=== PATIENT | female | born 1965 | race Caucasian/White ===

== ENCOUNTER 2022-07-23 12:23 | Inpatient (IN) | payer MEDICARE, MEDICAID ==
[~2022-07-23] VITALS: Ht 165.1 cm; Wt 104.3 kg
[2022-07-23 14:43] LABS: BASOPHILS % 0.3 % (0.0-2.0); EOSINOPHILS % 2.6 % (0.0-5.0); HEMATOCRIT. 41.5 % (36.0-48.0); HEMOGLOBIN. 13.3 g/dL (12.0-16.0); LYMPHOCYTES % 23.6 % (20.0-50.0); MEAN CORPUSCULAR HEMOGLOBIN 25.7 pg (28.0-32.0); MEAN CORPUSCULAR VOLUME 79.8 fL (81.0-99.0); MONOCYTES % 5.7 % (2.0-8.0); NEUTROPHILS % 67.8 % (40.0-76.0); PLATELET 206 x1000/uL (130-400); RED CELL DISTRIBUTION WIDTH 15.3 % (11.6-14.6)
[2022-07-23 14:57] LABS: CHLORIDE 97 mEq/L (98-107)
[2022-07-23] MEDS ORDERED: ASPIRIN 81MG TABLET PO NR (15:30)
[2022-07-23 16:57] LABS: PROTHROMBIN TIME 10.4 sec (9.6-11.0)
[2022-07-23 17:48] VITALS: BP 169/95
[2022-07-23] MEDS ORDERED: MAGNESIUM/ALUMINUM HYDROXIDE/SIMETHICONE 30ML UDC PO PRN (18:30)
[2022-07-23] MEDS ORDERED: GUAIFENESIN 200MG/10ML SUGAR FREE UDC PO PRN (18:30)
[2022-07-23] MEDS ORDERED: IPRATROPIUM/ALBUTEROL 0.5-3(2.5)MG/3ML NEB HHN PRN (18:30)
[2022-07-23] MEDS ORDERED: ONDANSETRON HCL 4MG/2ML INJ IV PRN (18:30)
[2022-07-23] MEDS ORDERED: DEXTROSE 50% WATER 50ML SYRINGE IV PRN (18:45)
[2022-07-23] MEDS: BLOOD SUGAR DIAGNOSTIC STRIP TEST SCH (20:31)
[2022-07-23] MEDS: FAMOTIDINE 20MG TABLET PO SCH (20:55)
[2022-07-23] MEDS: FUROSEMIDE 40MG TABLET PO SCH (21:00)
[2022-07-23] MEDS: INSULIN LISPRO 100 UNITS/ML SUBCUT SCH (21:00)
[2022-07-23] MEDS ORDERED: CLONIDINE 0.1MG TABLET PO PRN (22:00)
[2022-07-23] MEDS: AMLODIPINE 10MG TABLET PO SCH (22:08)
[2022-07-23 22:54] LABS: CLARITY URINE CLEAR (CLEAR); COLOR URINE YELLOW (YELLOW); KETONES URINE NEGATIVE (NEGATIVE); LEUKOCYTE ESTERASE URINE NEGATIVE (NEGATIVE); NITRITE URINE NEGATIVE (NEGATIVE); OCCULT BLOOD URINE NEGATIVE (NEGATIVE); PH URINE 5.5 (4.5-8.0); PROTEIN URINE TRACE (NEGATIVE); SPECIFIC GRAVITY URINE 1.026 (1.005-1.030); UROBILINOGEN URINE 0.2 E.U./dL (0.2-1.0)
[2022-07-23 23:14] LABS: *AMPHETAMINES SCREEN URINE NEGATIVE (NEGATIVE); *BARBITURATES SCREEN URINE NEGATIVE (NEGATIVE); *BENZODIAZEPINES SCREEN URINE NEGATIVE (NEGATIVE); *COCAINE SCREEN URINE NEGATIVE (NEGATIVE); CANNABINOID URINE SCREEN NEGATIVE (NEGATIVE); METHADONE URINE SCREEN NEGATIVE (NEGATIVE); OPIATES URINE SCREEN NEGATIVE (NEGATIVE); PHENCYCLIDINE URINE SCREEN NEGATIVE (NEGATIVE)
[2022-07-24] VITALS: BP 126/58
[2022-07-24] MEDS: METOPROLOL SUCCINATE 50MG ER TABLET PO SCH ×2 (01:18→09:40)
[2022-07-24 04:00] VITALS: BP 118/78
[2022-07-24] MEDS: PANTOPRAZOLE 40MG DR TABLET PO SCH ×2 (04:40→06:47)
[2022-07-24] MEDS: LEVOTHYROXINE SODIUM 50MCG TABLET PO SCH ×2 (04:40→06:47)
[2022-07-24] MEDS: ACETAMINOPHEN 325MG TABLET PO PRN ×3 (04:43→17:08)
[2022-07-24] MEDS: BLOOD SUGAR DIAGNOSTIC STRIP TEST SCH ×4 (06:23→21:15)
[2022-07-24 06:50] LABS: CHLORIDE 96 mEq/L (98-107)
[2022-07-24] MEDS: INSULIN LISPRO 100 UNITS/ML SUBCUT SCH ×4 (06:52→21:00)
[2022-07-24 06:58] LABS: BASOPHILS % 0.1 % (0.0-2.0); EOSINOPHILS % 2.7 % (0.0-5.0); HEMATOCRIT. 38.1 % (36.0-48.0); HEMOGLOBIN. 12.3 g/dL (12.0-16.0); LYMPHOCYTES % 26.4 % (20.0-50.0); MEAN CORPUSCULAR HEMOGLOBIN 25.8 pg (28.0-32.0); MEAN PLATELET VOLUME 11.1 fl (7.4-10.4); MONOCYTES % 7.1 % (2.0-8.0); NEUTROPHILS % 63.7 % (40.0-76.0); PLATELET 190 x1000/uL (130-400); RED BLOOD CELL COUNT 4.76 mill/uL (4.2-5.4); RED CELL DISTRIBUTION WIDTH 15.2 % (11.6-14.6)
[2022-07-24 07:09] LABS: HDL CHOLESTEROL 44 mg/dL (40-59); LDL CHOLESTEROL 136 mg/dL (5-100); T4 FREE 0.65 ng/dL (0.76-1.46); TOTAL IRON BINDING CAPACITY 441 ug/dL (250-450)
[2022-07-24 08:00] VITALS: BP 142/74
[2022-07-24] MEDS: AMLODIPINE 10MG TABLET PO SCH (09:39)
[2022-07-24] MEDS: ENOXAPARIN 30MG/0.3ML SYR SUBCUT SCH ×2 (09:39→21:14)
[2022-07-24] MEDS: ASPIRIN 81MG TABLET PO SCH (09:39)
[2022-07-24] MEDS: FUROSEMIDE 40MG TABLET PO SCH (09:40)
[2022-07-24 12:00] VITALS: BP 161/81
[2022-07-24 16:00] VITALS: BP 118/46
[2022-07-24 16:49] LABS: T4 FREE 0.67 ng/dL (0.76-1.46)
[2022-07-24 16:50] LABS: CREATINE KINASE 33 IU/L (26-192); CREATINE KINASE MB FRACTION < 1.0 ng/mL (0.5-3.6)
[2022-07-24 20:00] VITALS: BP 149/91
[2022-07-24] MEDS: ATORVASTATIN CALCIUM 40MG TABLET PO SCH (21:14)
[2022-07-24] MEDS: FAMOTIDINE 20MG TABLET PO SCH (21:14)
[2022-07-24 23:32] LABS: CREATINE KINASE 31 IU/L (26-192); CREATINE KINASE MB FRACTION < 1.0 ng/mL (0.5-3.6)
[2022-07-25] VITALS: BP 126/84
[2022-07-25] MEDS: ACETAMINOPHEN 325MG TABLET PO PRN ×2 (03:08→06:36)
[2022-07-25 04:00] VITALS: BP 138/88
[2022-07-25 06:04] LABS: HEMATOCRIT 38.2 % (36.0-48.0); HEMOGLOBIN 12.2 g/dL (12.0-16.0); MEAN CORPUSCULAR HEMOGLOBIN 25.8 pg (28.0-32.0); MEAN CORPUSCULAR VOLUME 80.8 fL (81.0-99.0); PLATELET 178 x1000/uL (130-400); RED BLOOD CELL COUNT 4.73 mill/uL (4.2-5.4); RED CELL DISTRIBUTION WIDTH 15.4 % (11.6-14.6)
[2022-07-25 06:16] LABS: CHLORIDE 99 mEq/L (98-107)
[2022-07-25 06:26] LABS: CREATINE KINASE 30 IU/L (26-192); CREATINE KINASE MB FRACTION < 1.0 ng/mL (0.5-3.6)
[2022-07-25] MEDS: INSULIN LISPRO 100 UNITS/ML SUBCUT SCH ×4 (07:50→20:22)
[2022-07-25] MEDS: BLOOD SUGAR DIAGNOSTIC STRIP TEST SCH ×4 (07:59→20:22)
[2022-07-25 08:00] VITALS: BP 186/81
[2022-07-25] MEDS: LEVOTHYROXINE SODIUM 50MCG TABLET PO SCH (08:14)
[2022-07-25] MEDS: PANTOPRAZOLE 40MG DR TABLET PO SCH (08:14)
[2022-07-25] MEDS ORDERED: IBUPROFEN 800MG TABLET PO NR (08:15)
[2022-07-25] MEDS: FUROSEMIDE 40MG TABLET PO SCH (09:04)
[2022-07-25] MEDS: METOPROLOL SUCCINATE 50MG ER TABLET PO SCH (09:04)
[2022-07-25] MEDS: ASPIRIN 81MG TABLET PO SCH (09:04)
[2022-07-25] MEDS: AMLODIPINE 10MG TABLET PO SCH (09:04)
[2022-07-25] MEDS: ENOXAPARIN 30MG/0.3ML SYR SUBCUT SCH ×2 (09:05→20:54)
[2022-07-25] MEDS ORDERED: IBUPROFEN 400MG TABLET PO PRN (09:30)
[2022-07-25] MEDS: LOSARTAN POTASSIUM 50 MG TABLET PO SCH (11:55)
[2022-07-25 12:00] VITALS: BP 173/87
[2022-07-25 16:00] VITALS: BP 145/70
[2022-07-25 20:00] VITALS: BP 140/63
[2022-07-25] MEDS: ATORVASTATIN CALCIUM 40MG TABLET PO SCH (20:54)
[2022-07-25] MEDS: FAMOTIDINE 20MG TABLET PO SCH (20:54)
[2022-07-26] VITALS: BP 132/89
[2022-07-26] MEDS: ACETAMINOPHEN 325MG TABLET PO PRN ×5 (00:50→23:53)
[2022-07-26] MEDS: BACLOFEN 10MG TABLET PO PRN (03:51)
[2022-07-26 04:00] VITALS: BP 140/77
[2022-07-26] MEDS: LEVOTHYROXINE SODIUM 50MCG TABLET PO SCH (06:23)
[2022-07-26] MEDS: BLOOD SUGAR DIAGNOSTIC STRIP TEST SCH ×4 (06:23→21:00)
[2022-07-26 07:11] LABS: HEMATOCRIT 35.6 % (36.0-48.0); HEMOGLOBIN 11.5 g/dL (12.0-16.0); MEAN CORPUSCULAR HEMOGLOBIN 26.2 pg (28.0-32.0); MEAN CORPUSCULAR VOLUME 80.9 fL (81.0-99.0); PLATELET 178 x1000/uL (130-400); RED CELL DISTRIBUTION WIDTH 15.3 % (11.6-14.6)
[2022-07-26] MEDS: INSULIN LISPRO 100 UNITS/ML SUBCUT SCH ×4 (07:50→21:00)
[2022-07-26 08:00] VITALS: BP 152/55
[2022-07-26 08:44] LABS: CHLORIDE 99 mEq/L (98-107)
[2022-07-26] MEDS: ENOXAPARIN 30MG/0.3ML SYR SUBCUT SCH ×2 (09:00→21:00)
[2022-07-26] MEDS: FUROSEMIDE 40MG TABLET PO SCH (09:29)
[2022-07-26] MEDS: ASPIRIN 81MG TABLET PO SCH (09:29)
[2022-07-26 09:30] LABS: PHOSPHORUS 4.8 mg/dL (2.5-4.9)
[2022-07-26] MEDS: METOPROLOL SUCCINATE 50MG ER TABLET PO SCH (09:30)
[2022-07-26] MEDS: AMLODIPINE 10MG TABLET PO SCH (09:30)
[2022-07-26] MEDS: LOSARTAN POTASSIUM 50 MG TABLET PO SCH ×3 (09:30→21:00)
[2022-07-26] MEDS: LEVOTHYROXINE SODIUM 100MCG TABLET PO SCH (09:36)
[2022-07-26] MEDS ORDERED: IOHEXOL-350 100 ML BOTTLE ONE (10:41)
[2022-07-26] MEDS ORDERED: NITROGLYCERIN SPRAY/4.9GM CAN TL NR (11:00)
[2022-07-26 13:00] VITALS: BP 135/69
[2022-07-26 16:00] VITALS: BP 102/60
[2022-07-26] MEDS: METHYL SALICYLATE/MENTHOL CREAM 85GM TOP PRN (18:30)
[2022-07-26 20:00] VITALS: BP 125/58
[2022-07-26] MEDS: ATORVASTATIN CALCIUM 40MG TABLET PO SCH (20:49)
[2022-07-27] VITALS (8 sets, daily range): BP systolic 107–161; BP diastolic 59–78
[2022-07-27] MEDS: BACLOFEN 10MG TABLET PO PRN ×2 (01:16→09:06)
[2022-07-27] MEDS: DOCUSATE SODIUM 100MG CAPSULE PO PRN ×2 (03:49→09:06)
[2022-07-27] MEDS: BLOOD SUGAR DIAGNOSTIC STRIP TEST SCH ×4 (07:20→20:59)
[2022-07-27] MEDS: INSULIN LISPRO 100 UNITS/ML SUBCUT SCH ×4 (07:38→20:59)
[2022-07-27 08:08] LABS: HEMATOCRIT 37.9 % (36.0-48.0); MEAN CORPUSCULAR HEMOGLOBIN 25.7 pg (28.0-32.0); MEAN CORPUSCULAR VOLUME 80.8 fL (81.0-99.0); PLATELET 179 x1000/uL (130-400); RED BLOOD CELL COUNT 4.69 mill/uL (4.2-5.4); RED CELL DISTRIBUTION WIDTH 15.3 % (11.6-14.6)
[2022-07-27] MEDS: AMLODIPINE 10MG TABLET PO SCH (08:29)
[2022-07-27] MEDS: LOSARTAN POTASSIUM 50 MG TABLET PO SCH ×2 (08:30→20:58)
[2022-07-27] MEDS: METOPROLOL SUCCINATE 50MG ER TABLET PO SCH (08:30)
[2022-07-27] MEDS: ASPIRIN 81MG TABLET PO SCH (08:30)
[2022-07-27] MEDS: LEVOTHYROXINE SODIUM 100MCG TABLET PO SCH (08:30)
[2022-07-27] MEDS: FUROSEMIDE 40MG TABLET PO SCH (08:30)
[2022-07-27] MEDS: ENOXAPARIN 30MG/0.3ML SYR SUBCUT SCH ×2 (08:30→20:59)
[2022-07-27] MEDS: SODIUM CHLORIDE 0.45% 1,000 ML IV SCH ×2 (08:31→15:38)
[2022-07-27 09:38] LABS: CHLORIDE 98 mEq/L (98-107)
[2022-07-27] MEDS ORDERED: POTA10TA20 PO (13:36)
[2022-07-27] MEDS ORDERED: FURO-151 PO (13:36)
[2022-07-27] MEDS ORDERED: LEVO100T MT (13:36)
[2022-07-27] MEDS ORDERED: POTA-205 PO (13:37)
[2022-07-27] MEDS ORDERED: LACTULOSE 20G/30ML UDC PO NR (14:30)
[2022-07-27] MEDS ORDERED: CYCLOBENZAPRINE 10MG TABLET PO NR (14:30)
[2022-07-27] MEDS ORDERED: DOCU-150 PO (14:34)
[2022-07-27] MEDS ORDERED: LIP40 PO (14:34)
[2022-07-27] MEDS ORDERED: METO-385 PO (14:34)
[2022-07-27] MEDS ORDERED: LOSA50TA3 PO (14:34)
[2022-07-27] MEDS ORDERED: AMLO10TA80 PO (14:34)
[2022-07-27 17:16] LABS: AMYLASE 85 IU/L (25-115)
[2022-07-27] MEDS: ACETAMINOPHEN 325MG TABLET PO PRN (20:57)
[2022-07-27] MEDS: FAMOTIDINE 20MG TABLET PO SCH ×2 (20:58→20:59)
[2022-07-27] MEDS: ATORVASTATIN CALCIUM 40MG TABLET PO SCH (20:58)
[2022-07-27] MEDS: METHYL SALICYLATE/MENTHOL CREAM 85GM TOP PRN (21:00)
[2022-07-28] MEDS: ACETAMINOPHEN 325MG TABLET PO PRN ×2 (02:23→06:46)
[2022-07-28 03:54] VITALS: BP 131/75
[2022-07-28] MEDS: INSULIN LISPRO 100 UNITS/ML SUBCUT SCH (06:46)
[2022-07-28] MEDS: BLOOD SUGAR DIAGNOSTIC STRIP TEST SCH (06:46)
[2022-07-28] MEDS: LEVOTHYROXINE SODIUM 100MCG TABLET PO SCH (06:46)
[2022-07-28 08:00] VITALS: BP 184/81
[2022-07-28] MEDS ORDERED: HYDROCODONE/ACETAMINOPHEN 5/325MG TABLET PO NR (08:00)
[2022-07-28 08:20] LABS: HEMATOCRIT 36.3 % (36.0-48.0); HEMOGLOBIN 11.7 g/dL (12.0-16.0); MEAN CORPUSCULAR HEMOGLOBIN 26.3 pg (28.0-32.0); MEAN CORPUSCULAR VOLUME 81.9 fL (81.0-99.0); PLATELET 177 x1000/uL (130-400); RED BLOOD CELL COUNT 4.44 mill/uL (4.2-5.4); RED CELL DISTRIBUTION WIDTH 15.1 % (11.6-14.6)
[2022-07-28] MEDS: METOPROLOL SUCCINATE 50MG ER TABLET PO SCH (08:22)
[2022-07-28] MEDS: LOSARTAN POTASSIUM 50 MG TABLET PO SCH (08:22)
[2022-07-28] MEDS: FUROSEMIDE 40MG TABLET PO SCH (08:22)
[2022-07-28] MEDS: ASPIRIN 81MG TABLET PO SCH (08:23)
[2022-07-28] MEDS: AMLODIPINE 10MG TABLET PO SCH (08:23)
[2022-07-28] MEDS: ENOXAPARIN 30MG/0.3ML SYR SUBCUT SCH (08:23)
[2022-07-28 08:26] LABS: CHLORIDE 99 mEq/L (98-107)
[2022-07-28 09:06] LABS: CLARITY URINE CLEAR (CLEAR); COLOR URINE YELLOW (YELLOW); KETONES URINE NEGATIVE (NEGATIVE); LEUKOCYTE ESTERASE URINE NEGATIVE (NEGATIVE); NITRITE URINE NEGATIVE (NEGATIVE); OCCULT BLOOD URINE NEGATIVE (NEGATIVE); PH URINE 6.5 (4.5-8.0); PROTEIN URINE NEGATIVE (NEGATIVE); SPECIFIC GRAVITY URINE 1.017 (1.005-1.030); UROBILINOGEN URINE 0.2 E.U./dL (0.2-1.0)
[2022-07-28 11:12] VITALS: BP 156/63
[2022-07-28 11:55] VITALS: BP 156/63
== END 2022-07-28 15:31 | disposition home health service (06) | DRG 282 ==
LOC: ER 12:23 → EDBD 12:23 → 6WST 16:23 → EDBEDREQ 16:28 → EDBEDREQTM 16:28 → ENRESERV 16:34
PROVIDERS: ADMIT Internal Medicine; ATTEND Internal Medicine
DX: I21.4 Non-ST elevation (NSTEMI) myocardial infarction (principal); I11.0 Hypertensive heart disease with heart failure; I48.91 Unspecified atrial fibrillation; E03.9 Hypothyroidism, unspecified; Z20.822 Contact with and (suspected) exposure to COVID-19; K21.9 Gastro-esophageal reflux disease without esophagitis; G43.909 Migraine, unspecified, not intractable, without status migrainosus; G89.29 Other chronic pain; R73.03 Prediabetes; K59.00 Constipation, unspecified; J44.9 Chronic obstructive pulmonary disease, unspecified; E78.5 Hyperlipidemia, unspecified; I50.9 Heart failure, unspecified; Z28.310 Unvaccinated for COVID-19; Z79.82 Long term (current) use of aspirin; Z79.890 Hormone replacement therapy; Z79.899 Other long term (current) drug therapy; Z82.49 Family history of ischemic heart disease and other diseases of the circulatory system; Z86.16 Personal history of COVID-19
CPT/HCPCS: 36415; 71045; 74018; 75571; 80048; 80053; 80061; 80305; 81003; 82150; 82550; 82553; 82728; 82962; 83036; 83540; 83550; 83735; 83880; 84100; 84439; 84443; 84484; 85025; 85027; 85379; 87426; 93005; 93306; 99285; C1893; J1650; J1815; Q9967

== ENCOUNTER 2022-09-13 05:29 | Inpatient (IN) | payer MEDICARE, MEDICAID ==
[~2022-09-13] VITALS: Ht 160 cm; Wt 140.2 kg
[~2022-09-13 05:29] MED LIST: AMLO10TA80 PO; DOCU-150 PO; FURO-151 PO; LEVO100T MT; LIP40 PO; LOSA50TA3 PO; METO-385 PO
[2022-09-13] MEDS ORDERED: NITROGLYCERIN 0.4MG TABLET SL SL PRN (06:00)
[2022-09-13] MEDS ORDERED: ASPIRIN 81MG TABLET PO ONE (06:00)
[2022-09-13] MEDS ORDERED: DILTIAZEM HCL 5MG/ML 5ML VIAL IV ONE ×2 (06:00→08:00)
[2022-09-13] MEDS ORDERED: DILTIAZEM HCL 90MG TABLET PO ONE (06:00)
[2022-09-13 06:18] LABS: BASOPHILS % 0.1 % (0.0-2.0); EOSINOPHILS % 3.1 % (0.0-5.0); HEMATOCRIT. 42.1 % (36.0-48.0); HEMOGLOBIN. 13.6 g/dL (12.0-16.0); LYMPHOCYTES % 30.1 % (20.0-50.0); MEAN CORPUSCULAR HEMOGLOBIN 26.5 pg (28.0-32.0); MEAN CORPUSCULAR VOLUME 82.2 fL (81.0-99.0); MEAN PLATELET VOLUME 11.3 fl (7.4-10.4); NEUTROPHILS % 56.7 % (40.0-76.0); PLATELET 197 x1000/uL (130-400); RED BLOOD CELL COUNT 5.13 mill/uL (4.2-5.4); RED CELL DISTRIBUTION WIDTH 16.1 % (11.6-14.6)
[2022-09-13 06:24] LABS: CHLORIDE 99 mEq/L (98-107)
[2022-09-13] MEDS ORDERED: ACETAMINOPHEN 325MG TABLET PO PRN (15:45)
[2022-09-13] MEDS ORDERED: GUAIFENESIN 200MG/10ML SUGAR FREE UDC PO PRN (15:45)
[2022-09-13] MEDS ORDERED: DIPHENHYDRAMINE 50MG/ML VIAL IV PRN (15:45)
[2022-09-13] MEDS ORDERED: ZOLPIDEM TARTRATE 5MG TABLET PO PRN (15:45)
[2022-09-13] MEDS ORDERED: CLONIDINE 0.1MG TABLET PO PRN (15:45)
[2022-09-13] MEDS ORDERED: MAGNESIUM/ALUMINUM HYDROXIDE/SIMETHICONE 30ML UDC PO PRN (15:45)
[2022-09-13] MEDS ORDERED: ONDANSETRON HCL 4MG/2ML INJ IV PRN (15:45)
[2022-09-13] MEDS: LOSARTAN POTASSIUM 50 MG TABLET PO SCH (17:52)
[2022-09-13] MEDS ORDERED: ENOXAPARIN 40MG/0.4ML SYR SUBCUT SCH (21:00)
[2022-09-13 21:47] VITALS: BP 168/68
[2022-09-13] MEDS: ATORVASTATIN CALCIUM 40MG TABLET PO SCH (22:27)
[2022-09-13] MEDS: PANTOPRAZOLE 40MG DR TABLET PO SCH (22:27)
[2022-09-13] MEDS: METOPROLOL TARTRATE 50MG TABLET PO SCH (22:28)
[2022-09-14] VITALS: BP 122/57
[2022-09-14] MEDS: DILTIAZEM HCL 90MG TABLET PO SCH ×4 (00:22→21:38)
[2022-09-14 04:00] VITALS: BP 118/47
[2022-09-14] MEDS: ACETAMINOPHEN 325MG TABLET PO PRN ×2 (04:15→09:27)
[2022-09-14] MEDS: SODIUM CHLORIDE 0.9% INJ 3ML FLUSH IVF SCH ×4 (05:59→22:00)
[2022-09-14] MEDS: PANTOPRAZOLE 40MG DR TABLET PO SCH ×2 (05:59→21:37)
[2022-09-14] MEDS ORDERED: LEVOTHYROXINE SODIUM 100MCG TABLET PO SCH (06:30)
[2022-09-14 08:00] VITALS: BP 117/44
[2022-09-14] MEDS ORDERED: ASPIRIN 81MG EC TABLET PO SCH (09:00)
[2022-09-14] MEDS: APIXABAN 5 MG TABLET PO SCH ×2 (09:26→17:14)
[2022-09-14] MEDS: METOPROLOL TARTRATE 50MG TABLET PO SCH ×2 (09:26→21:00)
[2022-09-14] MEDS: LOSARTAN POTASSIUM 50 MG TABLET PO SCH ×2 (09:26→21:38)
[2022-09-14 12:00] VITALS: BP 123/59
[2022-09-14 16:00] VITALS: BP 142/77
[2022-09-14 17:39] LABS: CREATINE KINASE 39 IU/L (26-192); CREATINE KINASE MB FRACTION < 1.0 ng/mL (0.5-3.6); HDL CHOLESTEROL 42 mg/dL (40-59); LDL CHOLESTEROL 100 mg/dL (5-100); T4 FREE 0.55 ng/dL (0.76-1.46)
[2022-09-14 20:00] VITALS: BP 130/88
[2022-09-14] MEDS: ATORVASTATIN CALCIUM 40MG TABLET PO SCH (21:37)
[2022-09-15] VITALS: BP 114/45
[2022-09-15 01:40] LABS: CREATINE KINASE 39 IU/L (26-192); CREATINE KINASE MB FRACTION < 1.0 ng/mL (0.5-3.6)
[2022-09-15 04:00] VITALS: BP 114/59
[2022-09-15] MEDS: SODIUM CHLORIDE 0.9% INJ 3ML FLUSH IVF SCH ×2 (05:38→14:00)
[2022-09-15] MEDS: PANTOPRAZOLE 40MG DR TABLET PO SCH (05:39)
[2022-09-15] MEDS: DILTIAZEM HCL 90MG TABLET PO SCH ×2 (05:39→14:41)
[2022-09-15] MEDS ORDERED: LEVOTHYROXINE SODIUM 200MCG TABLET PO SCH (06:40)
[2022-09-15 07:44] LABS: CREATINE KINASE 39 IU/L (26-192); CREATINE KINASE MB FRACTION < 1.0 ng/mL (0.5-3.6)
[2022-09-15 09:00] VITALS: BP 138/71
[2022-09-15] MEDS: METOPROLOL TARTRATE 50MG TABLET PO SCH (09:32)
[2022-09-15] MEDS: APIXABAN 5 MG TABLET PO SCH ×2 (09:33→16:56)
[2022-09-15] MEDS: LOSARTAN POTASSIUM 50 MG TABLET PO SCH (09:33)
[2022-09-15] MEDS: ACETAMINOPHEN 325MG TABLET PO PRN (09:51)
[2022-09-15 12:00] VITALS: BP 125/37
[2022-09-15] MEDS ORDERED: LEVO200T8 PO (15:19)
[2022-09-15 16:55] VITALS: BP 105/75
[2022-09-15] MEDS ORDERED: FAMOTIDINE 20MG TABLET PO SCH (17:00)
[2022-09-15 17:44] VITALS: BP 105/75
== END 2022-09-15 18:20 | disposition home or self-care (01) | DRG 309 ==
LOC: ER 05:41 → MICUSO 09:27 → EDBEDREQ 09:31 → EDBEDREQTM 09:31 → 7EST 21:27
PROVIDERS: ADMIT Internal Medicine; ATTEND Internal Medicine
DX: I48.0 Paroxysmal atrial fibrillation (principal); E87.1 Hypo-osmolality and hyponatremia; Z68.43 Body mass index [BMI] 50.0-59.9, adult; I11.0 Hypertensive heart disease with heart failure; E11.9 Type 2 diabetes mellitus without complications; E03.9 Hypothyroidism, unspecified; E66.9 Obesity, unspecified; E78.5 Hyperlipidemia, unspecified; I50.9 Heart failure, unspecified; J44.9 Chronic obstructive pulmonary disease, unspecified; Z79.899 Other long term (current) drug therapy; Z79.01 Long term (current) use of anticoagulants
CPT/HCPCS: 36415; 71045; 80053; 80061; 82550; 82553; 83036; 83880; 84439; 84443; 84484; 85025; 85379; 93005; 93306; 93970; 99291; J1650; J3490

== ENCOUNTER 2022-11-01 11:09 | Emergency (ER) | payer MEDICARE, MEDICAID ==
[~2022-11-01] VITALS: Ht 167.6 cm; Wt 118.0 kg
[~2022-11-01 11:09] MED LIST changes: -AMLO10TA80 PO; -DOCU-150 PO; -LEVO100T MT; +LEVO200T8 PO
[2022-11-01 11:44] VITALS: BP 158/79
[2022-11-01 13:46] LABS: BASOPHILS % 0.2 % (0.0-2.0); EOSINOPHILS % 2.7 % (0.0-5.0); HEMATOCRIT. 38.5 % (36.0-48.0); HEMOGLOBIN. 12.4 g/dL (12.0-16.0); LYMPHOCYTES % 26.5 % (20.0-50.0); MEAN CORPUSCULAR HEMOGLOBIN 26.1 pg (28.0-32.0); MEAN CORPUSCULAR VOLUME 81.2 fL (81.0-99.0); MEAN PLATELET VOLUME 11.1 fl (7.4-10.4); MONOCYTES % 8.8 % (2.0-8.0); NEUTROPHILS % 61.8 % (40.0-76.0); PLATELET 168 x1000/uL (130-400); RED BLOOD CELL COUNT 4.75 mill/uL (4.2-5.4)
[2022-11-01 13:47] LABS: CHLORIDE 99 mEq/L (98-107)
[2022-11-01 14:24] LABS: CLARITY URINE CLEAR (CLEAR); COLOR URINE YELLOW (YELLOW); KETONES URINE NEGATIVE (NEGATIVE); LEUKOCYTE ESTERASE URINE NEGATIVE (NEGATIVE); NITRITE URINE NEGATIVE (NEGATIVE); OCCULT BLOOD URINE NEGATIVE (NEGATIVE); PH URINE 7.5 (4.5-8.0); PROTEIN URINE NEGATIVE (NEGATIVE); SPECIFIC GRAVITY URINE 1.006 (1.005-1.030); UROBILINOGEN URINE 0.2 E.U./dL (0.2-1.0)
== END 2022-11-01 18:50 | disposition home or self-care (01) ==
LOC: ER 11:09
DX: R10.32 Left lower quadrant pain (principal); R94.31 Abnormal electrocardiogram [ECG] [EKG]
CPT/HCPCS: 36415; 71045; 74176; 80053; 81003; 83880; 84443; 84484; 85025; 93005; 99285

== ENCOUNTER 2025-01-23 14:18 | Emergency (ER) | payer MEDICARE, MEDICAID ==
[~2025-01-23] VITALS: Ht 157.5 cm; Wt 127.0 kg
[~2025-01-23 14:18] MED LIST changes: +LOSA-413 PO; -LOSA50TA3 PO
[2025-01-23 14:44] VITALS: O2SAT 99
[2025-01-23] MEDS: ACETAMINOPHEN 325MG TABLET PO STA (16:53)
[2025-01-23 18:30] VITALS: BP 118/73; PULSE 66; RESP 16; TEMP 36.4; O2SAT 100
== END 2025-01-23 18:47 | disposition home or self-care (01) ==
LOC: ER 14:18
DX: M25.532 Pain in left wrist (principal); M94.0 Chondrocostal junction syndrome [Tietze]; I50.9 Heart failure, unspecified; J44.9 Chronic obstructive pulmonary disease, unspecified; Z79.899 Other long term (current) drug therapy
CPT/HCPCS: 29260; 71045; 73100; 93005; 99284